=== PATIENT | male | born 1990 | race African-American/Black ===

== ENCOUNTER 2023-11-29 09:39 | Emergency (ER) | payer SELFPAY ==
[~2023-11-29] VITALS: Ht 188 cm; Wt 77.5 kg
[2023-11-29 10:01] VITALS: BP 117/74; PULSE 114; RESP 17; TEMP 98; O2SAT 96
== END 2023-11-29 10:52 | disposition home or self-care (01) ==
LOC: ER 09:41
DX: R10.31 Right lower quadrant pain (principal); F15.10 Other stimulant abuse, uncomplicated
CPT/HCPCS: 99281